=== PATIENT | male | born 1965 | race Caucasian/White ===

== ENCOUNTER 2017-10-07 12:22 | Inpatient (IN) ==
--- NOTE | 2017-10-06 15:54 | Discharge Summary ---
<Alejandrina Steinberg - Last Filed: 10/06/17 15:51> Date of Encounter: 10/06/17 - Discharge Diagnosis (1) Arthritis of left knee Priority: Primary Status: Chronic (2) Tobacco dependence Priority: Secondary Status: Chronic (3) Status post left knee replacement Priority: Primary Status: Acute - Hospital Course Hospital course: Mr. Horta is a 52 year old male - Time Spent with Patient Total time spent providing and/or coordinating discharge services: - Discharge Medications Home Medications: Aspirin Enteric Coated [Aspirin EC] 325 mg PO BID 10 Days #20 tablet. [Rx] OxyCODONE Immed Rel [Roxicodone 5 MG] 5 mg PO Q6HR PRN 7 Days #28 tablet [Rx] Allergies/Adverse Reactions: 3 Allergy/AdvReac Type Severity Reaction Status Date / Time No Known Allergies Allergy Verified 10/07/17 12:48 Primary care physician: PCP NONE - Patient Status Disposition: Home, Self-Care Condition: Good - Discharge Instructions Follow Up With: NONE,PCP [Primary Care Provider] - Jory Sarkar [Family Provider] - <Forest Lopez - Last Filed: 10/08/17 06:36> Orders not resulted at time of discharge: Pending orders 10/07/17 US anesthesia pain block [US] Stat 10/07/17 01:00 XR knee LT limited 1-2V [XR] Routine Hemoglobin and Hematocrit [HEME] Routine Date of Encounter: 10/08/17 Time of Encounter: 06:35 - Discharge Diagnosis (1) Arthritis of left knee Priority: Primary Status: Chronic (2) Tobacco dependence Priority: Secondary Status: Chronic (3) Status post left knee replacement Priority: Primary Status: Acute - Hospital Course Hospital course: Mr. Horta is a 52 year old male Status post left total knee replacement The patient had an uneventful postoperative course. They received antibiotics and physical therapy and were discharged in stable condition. There will follow -up in the office in 2 weeks. - Time Spent with Patient Total time spent providing and/or coordinating discharge services: Primary care physician: PCP NONE - Patient Status Functional capacity at discharge: uses cane/walker Overall status at discharge: patient is progressing back to baseline
--- NOTE | 2017-10-07 12:24 | Anesthesia Evaluation PreOp ---
Date of Encounter: 10/07/17 Time of Encounter: 13:45 - Past History Planned Operation: Left Total Knee Arthroplasty Cardiac History: Denies any Significant Hx Pulmonary History: Smoker (35 years) [employer] History: Denies Any Significant HX Other Medical History: Denies Any Significant HX Anesthesia History: No Prior Anesthetic Complications, Past Anesthesia Alcohol Use: none Drug use: none Medications and Allergies Aspirin Enteric Coated [Aspirin EC] 325 mg PO BID 10 Days #20 tablet. [Rx] OxyCODONE Immed Rel [Roxicodone 5 MG] 5 mg PO Q6HR PRN 7 Days #28 tablet [Rx] 3 Allergy/AdvReac Type Severity Reaction Status Date / Time No Known Allergies Allergy Verified 10/07/17 12:48 - Meds/Allergy Pre-op Review Medications Reviewed: Yes Allergies Reviewed: Yes Beta Blockers on Current Med List: No Anesthesia Results - Labs Laboratory Tests 09/30/17 09/30/17 09/30/17 10:40 10:40 10:40 WBC 9.6 Hgb 16.8 Hct 49.0 Plt Count 253 PT 11.0 INR 1.0 APTT 31.1 Sodium 136 Potassium 4.4 BUN 12 Creatinine 0.90 Anesthesia Exam O2 Sat Height 1.78 m Height 1.78 m Weight 87.09 kg Weight 87.09 kg O2 Sat by Pulse Oximetry 95 Vital Signs Temp Pulse Resp BP Pulse Ox 98 F 99 18 126/77 95 10/07/17 12:51 10/07/17 12:51 10/07/17 12:51 10/07/17 12:51 10/07/17 12:51 Height: 5'10" Weight: 192 lbs NPO (# of Hours): 8 Pain Scale: 0 Pain Scale Used: Numeric (1 - 10) - HEENT Pupil (Motor): EOMI Mallampati: II Teeth: Normal, Missing Denture Type: Upper: Complete Oral Opening: Greater than 3 - [employer] LOC: Oriented [employer] Motor: Normal RUE, Normal LUE, Normal RLE, Normal LLE, Normal Face [employer] Sensory: Normal: RUE, LUE, RLE, LLE, Face - Cardiac Rhythm: Regular Murmur: None - Pulmonary Breath Sounds: bilateral Clear Respiratory Effort: Symmetrical Anesthesia Assess/Plan ASA Score: 2 Modified Larisa Scale for Level of Consciousness: Cooperative, oriented, and tranquil Anesthetic Plan: General, Regional Monitoring Plan: Standard Monitors Recovery Plan: PACU
[2017-10-07] MEDS ORDERED: Albuterol 2.5 MG/3 ML NEBULIZER IH ONE (12:44)
[2017-10-07] MEDS ORDERED: CeFAZolin Syr 2,000MG/20 ML 2,000 MG/20 ML SYRINGE IVPB ONE (12:44)
[2017-10-07] MEDS ORDERED: Ringers Solution, Lactated 1,000 ML IVC SCH ×3 (12:45→18:21)
[2017-10-07] MEDS ORDERED: *HR* Midazolam HCl 2 MG/2 ML VIAL ONE (13:53)
[2017-10-07] MEDS ORDERED: *HR* Propofol 200 MG/20 ML VIAL IVP ONE (13:53)
[2017-10-07] MEDS ORDERED: *HR* FentaNYL (PF) 100 MCG/2 ML VIAL ONE (13:53)
--- NOTE | 2017-10-07 14:22 | History & Physical Report ---
Date of Encounter: 10/07/17 Time of Encounter: 14:22 24 Hour HP Update - Instructions Instructions: If the History and Physical is less than 30 days old and was completed prior to A.M. admission and or procedure and has NOT been updated on calendar day of procedure please complete this update prior to performing procedure. - Update Patient reports changes in Medical Condition: No Changes in examination, assessment, or condition: No Changes in Medication: No Preop tests/diagnostics Reviewed: Yes Surgery Remains Indicated: Yes Consent for Planned Operative Procedure(s) Verified: Yes - Pre-Operative Checklist Preoperative Checklist Indicated: No Prophylactic Antibiotic Ordered: Yes Is VTE Prophylaxis Indicated?: Yes
[2017-10-07] MEDS ORDERED: ROPIVACAINE HCL/PF 0.5% 30 ML VIAL ONE (14:39)
[2017-10-07] MEDS ORDERED: Ethanol\\Acetic Acid\\Na Ace\\Ben 1,000 ML IRRIG.SOLN IR ONE (14:54)
[2017-10-07] MEDS ORDERED: *HR* Morphine Sulfate/PF 10 MG/10 ML AMPUL ONE (14:57)
--- NOTE | 2017-10-07 16:00 | Anesthesia Procedures ---
Date of Encounter: 10/07/17 Time of Encounter: 15:15 Procedures: Anesthesia - Epidural/Spinal Patient ID/Chart reviewed: Yes Patient examined: Yes Supplemental Oxygen: Nasal Cannula Supplemental Oxygen Rate (L/min): 2 Site Prep: Aseptic Technique, Sterile prep and drape, Povidone-Iodine 1% Patient position: upright Local Anesthetic: Lidocaine 1% Amount of Local Anesthetic used: 3 Interspace Used: L3-L4 Loss of Resistance (RUDI): Yes Blood: No CSF: Yes Paresthesia: No Spinal Needle Gauge: 25 Spinal Dose: Bupivicaine 0.5% 2.5ml in NS Morphine 250mcg Procedure: Intrathecal dose administered in upright position 1st pass without any immediate noted complications. VSS. Vitals + FHT's: Vital Signs Temperature 98 F 10/07/17 12:51 Pulse Rate 99 10/07/17 12:51 Respiratory Rate 18 10/07/17 12:51 Blood Pressure 126/77 10/07/17 12:51 O2 Sat by Pulse Oximetry 95 10/07/17 12:51 Temperature 98 F 10/07/17 12:51 Pulse Rate 95 10/07/17 15:22 Respiratory Rate 18 10/07/17 12:51 Blood Pressure 110/76 10/07/17 15:22 O2 Sat by Pulse Oximetry 95 10/07/17 15:22
[2017-10-07] MEDS ORDERED: *HR* Promethazine 25 MG/ML VIAL IVP PRN (16:05)
[2017-10-07] MEDS ORDERED: Ondansetron 4 MG/2 ML VIAL IVP ONE (16:05)
[2017-10-07] MEDS ORDERED: MORPHINE SUL Oral CONC 10 MG/0.5 ML ORAL.SYG SL PRN (16:05)
[2017-10-07] MEDS ORDERED: Dexamethasone 4 MG/ML VIAL ONE (16:27)
[2017-10-07] MEDS ORDERED: Ondansetron 4 MG/2 ML VIAL ONE (16:27)
--- NOTE | 2017-10-07 16:30 | Orthopedic Operative Note ---
Date of procedure: 10/07/17 Pre-op diagnosis: Left knee arthritis Post-op diagnosis: same Procedure: Procedure: Left robotic-assisted Total knee replacement Estimated blood loss: 200 cc Hardware: Metal and polyethylene replacement. Drift Femur: 4 Tibia:5 TS insert: 11 Patella: 39 Exam Under anesthesia: 3 degrees hyperextension 15 degrees varus calculated by the robot full flexion and no instability Procedural Notes: Grade 3 arthritic changes medial compartment patellofemoral joint Operative procedure: The patient was brought to the operating room and placed on the operating room table. After general anesthesia was administered the operative knee was examined. Findings were noted in the exam under anesthesia. The operative extremity was prepped and draped in sterile surgical fashion. The patient received IV antibiotics prior to skin incision. A standard midline incision was made centered over the patella. The incision was made through the skin and subcutaneous tissue. A medial parapatellar tendon approach was performed. Care was taken to preserve tissue along the medial aspect of the patella. And to protect the patella tendon. The deep MCL was released off the medial tibia. The infra patella fat pad was excised. The patella was everted and cut was made at the level of the insertion of the quadriceps and patella tendon. The patella was sized to a 39 the guide was seated and the lug holes are drilled. Knee was brought into flexion. Patient noted to have patient noted to have grade 3 changes medial compartment patellofemoral joint. Steinmann pins were placed in the tibia and the femur for the tibial and femoral arrays respectively. Checkpoints were also placed in the tibia and the femur for calculation purposes. The knee including the femur and the tibial registered. Osteophytes, ACL and PCL were excised at this point. Extension and flexion were assessed with a valgus stress components were adjusted on the computer to balance the knee. Femoral cuts were made first with robotic assistance, these included the anterior cut posterior cuts chamfer cuts. Tibial cut was then performed with robotic assistance as well. Bone fragments were removed, as well as the medial and lateral meniscus. The size 4 femoral guide was seated box cut was made lug holes are drilled. The size 5 tibial tray was seated and prepared with the fin cutter. Trial reduction with the 11 TS Kelli revealed extension of 0 degree and 8 degrees varus and full flexion. No varus valgus instability. Trial reduction revealed excellent patella tracking. All trial components were removed all bony surfaces were irrigated. The Tibia was seated followed by the femur, The Kelli size 11 was seated and secured patella. Patient had similar findings for motion and stability. The knee was closed by the PA. The knee was then irrigated out with 2 L of pulse irrigation. The extensor mechanism was closed with #2 FiberWire suture and #2 PDS suture. The subcutaneous tissue was then irrigated and closed deep with #1 PDS suture superficially with 0 PDS suture and skin was closed with zip tie The patient was then placed in a sterile dressing and a postoperative brace extubated and transferred to recovery room in stable condition. Anesthesia: GETA Surgeon: Forest Lopez Was there an marketing assistant manager present: Yes Fiscal Services Director: Alejandrina Steinberg Estimated blood loss (cc): 200 Condition: stable Disposition: PACU
[2017-10-07] MEDS ORDERED: Ketorolac 30 MG/ML VIAL ONE (16:46)
[2017-10-07 17:26] LABS: Hematocrit 44.1 % (37.5-50.1); Hemoglobin 14.8 g/dL (12.9-16.9)
[2017-10-07] MEDS ORDERED: *HR* Enoxaparin 30 MG/0.3 ML SYRINGE SQ SCH (18:00)
[2017-10-07] MEDS ORDERED: Naloxone 0.4 MG/ML INJ IVP PRN (18:21)
[2017-10-07] MEDS ORDERED: Ondansetron 4 MG/2 ML VIAL IVP PRN (18:21)
[2017-10-07] MEDS ORDERED: traMADol 50 MG TABLET PO PRN (18:21)
[2017-10-07] MEDS ORDERED: Temazepam 15 MG CAPSULE PO PRN (18:21)
[2017-10-07] MEDS ORDERED: *HR* OxyCODONE/APAP 5/325 TABLET PO PRN (18:21)
[2017-10-07] MEDS ORDERED: Sennosides 8.6 MG TABLET PO PRN (18:21)
[2017-10-07] MEDS ORDERED: MOM Conc 10 ML UD.LIQ PO PRN (18:21)
[2017-10-07] MEDS ORDERED: CeFAZolin Premix DUPLEX 2,000 MG/50 ML BAG IVPB SCH (18:21)
[2017-10-07] MEDS: CeFAZolin Premix DUPLEX 2,000 MG/50 ML BAG IVPB SCH (23:15)
[2017-10-08] MEDS: *HR* OxyCODONE Immed Rel 5 MG TABLET PO PRN ×2 (04:10→09:13)
[2017-10-08] MEDS ORDERED: *HR* Enoxaparin 30 MG/0.3 ML SYRINGE SQ SCH (06:00)
[2017-10-08 06:04] LABS: Hematocrit 41.4 % (37.5-50.1); Hemoglobin 14.1 g/dL (12.9-16.9)
[2017-10-08 06:24] LABS: BUN/Creatinine Ratio 18 (6-26); Blood Urea Nitrogen 14 mg/dL (6-20); Calcium 8.8 mg/dL (8.6-10.3); Carbon Dioxide 23 mEq/L (23-29); Chloride 103 mEq/L (98-107); Glucose 129 mg/dL (70-105); Osmolality,Calculated 278 (280-300); Potassium 4.5 mEq/L (3.5-5.1); Sodium 133 mEq/L (136-145); eGFR For African Americans > 60 (> 60); eGFR For Non-African Americans > 60 (> 60)
--- NOTE | 2017-10-08 06:36 | Orthopedics Progress Note ---
Date of Encounter: 10/08/17 Time of Encounter: 06:36 - Assessment and Plan (1) Arthritis of left knee Current Visit: No Status: Chronic (2) Tobacco dependence Current Visit: No Status: Chronic (3) Status post left knee replacement Current Visit: No Status: Acute Subjective Interval history: Patient was seen this morning doing well without complaints. Afebrile vital signs stable. Operative extremity: Neurovascularly intact Dressing clean dry and intact Calves nontender Assessment and plan: Continue with postoperative care Hematocrit 43 discharged today Objective Vital signs: Vital Signs Temp Pulse Resp BP Pulse Ox 10/08/17 03:35 98.2 F 86 18 116/72 96 10/07/17 23:33 98.6 F 75 18 112/67 96 10/07/17 18:02 98 F 82 18 107/68 95 10/07/17 17:31 97.8 F 79 14 110/74 92 10/07/17 17:21 85 16 110/76 92 10/07/17 17:11 88 14 102/51 91 10/07/17 17:01 98.3 F 96 16 100/70 93 10/07/17 15:22 95 110/76 95 10/07/17 15:19 94 113/70 94 10/07/17 15:16 92 110/74 94 10/07/17 15:13 93 116/76 97 10/07/17 15:10 94 115/69 94 10/07/17 15:00 97 122/78 95 10/07/17 12:51 98 F 99 18 126/77 95 Intake and Output 10/07/17 10/07/17 10/08/17 15:59 23:59 07:59 Intake Total 800 / 800 Output Total 200 / 200 Balance 600 / 600 Intake: Oral 800 / 800 Output: Estimated Blood Loss 200 / 200 Other: # Voids 1 1 Weight 87.09 kg - Labs CBC & BMP: 10/08/17 05:05 10/08/17 05:05 Labs: Abnormal lab results Sodium 133 mEq/L (136-145) L 10/08/17 05:05 Glucose 129 mg/dL (70-105) H 10/08/17 05:05 Calculated Osmolality 278 (280-300) L 10/08/17 05:05 - VTE Documentation of Mechanical Device: Venous foot pump, device Consult Discharge Plan - Plan Referrals: NONE,PCP [Primary Care Provider] - Jory Sarkar [Family Provider] -
[2017-10-08] MEDS: CeFAZolin Premix DUPLEX 2,000 MG/50 ML BAG IVPB SCH (06:52)
[2017-10-08 10:52] VITALS: BP 119/72
--- NOTE | 2017-10-08 17:58 | Event Note ---
Date of Encounter: 10/08/17 Time of Encounter: 12:00 PCR- POD#1 L TKR robotic 10/07/17 John PCR - Patient seen at bedside. Labwork and medications reviewed. Pain control: Adequate Participating in PT. All questions and concerns addressed. Educated on use of incentive spirometer, ambulation, and hydration. Patient educated on post-operative restrictions and care. Addressed: Appropriate use pain medication - educated on risks/benefits of use and instructed to take only as directed. Will send muscle relaxer, ibuprofen, and tylenol to pharmacy of choice to help patient use Oxycodone for severe pain only. Patient and spouse verbalize understanding D/C plan: Home with OP therapy today
== END 2017-10-08 12:30 | disposition home or self-care (01) | DRG 470 ==
LOC: SAMDAY 12:22 → 3NENU 18:01
PROVIDERS: ADMIT Orthopaedic Surgery; ATTEND Orthopaedic Surgery